=== PATIENT | male | born 1975 | race Caucasian/White ===

== ENCOUNTER → 2021-05-09 | Outpatient (CLI) | payer OTHER ==
[~2021-05-09] MED LIST: AMLODIPINE BESYL5 MG PO; ASPIRIN EC81 MG PO; AUGMENTIN 875-1 EACH PO; BUSPAR 10MG10 MG PO; HYDRALAZINE HCL50 MG PO; IBUPROFEN800 MG PO; IMDUR ER TAB 3030 MG PO; LIORESAL TAB 1010 MG PO; LISINOPRIL10 MG PO; LOPRESSOR 25 MG25 MG PO; PREDNISONE 20 M20 MG PO; PROAIR HFA8.5 GM INH; TRAZODONE HCL100 MG PO; ZESTRIL20 MG PO
== END ==
LOC: KOH-I 14:22
DX: G43.009 Migraine without aura, not intractable, without status migrainosus (principal); J01.00 Acute maxillary sinusitis, unspecified; J32.0 Chronic maxillary sinusitis
CPT/HCPCS: 70450